=== PATIENT | female | born 1970 | race Asian ===

== ENCOUNTER 2021-09-21 16:34 | Emergency (ER) | payer OTHER ==
[2021-09-21 16:37] VITALS: BP 124/68; PULSE 82; TEMP 98; BMI 31.2
== END 2021-09-21 18:34 | disposition home or self-care (01) ==
LOC: JERFT 16:34
PROC: 2W3RX1Z Immobilization of Left Lower Leg using Splint (ICD-10-PCS; principal; 2021-09-21)
DX: S82.892A Other fracture of left lower leg, initial encounter for closed fracture (principal); X50.0XXA Overexertion from strenuous movement or load, initial encounter; Y93.02 Activity, running
CPT/HCPCS: 73610-TC-LT-FY; 99283-25